=== PATIENT | female | born 1955 | race Caucasian/White ===

== ENCOUNTER → 2016-09-19 | Outpatient (CLI) | payer BC | LOC: BMCIMAGING 08:11 | DX: Z12.31 Encounter for screening mammogram for malignant neoplasm of breast (principal) | CPT/HCPCS: G0202 ==

== ENCOUNTER → 2017-04-19 | Outpatient (CLI) | payer BC | LOC: BMCIMAGING 15:17 | PROVIDERS: ATTEND Internal Medicine Rheumatology | DX: Z13.820 Encounter for screening for osteoporosis (principal) ==

== ENCOUNTER → 2017-10-18 | Outpatient (CLI) | payer BC | LOC: BMCIMAGING 14:09 | PROVIDERS: ATTEND Nurse Practitioner Adult Health | DX: Z12.31 Encounter for screening mammogram for malignant neoplasm of breast (principal) ==

== ENCOUNTER → 2018-10-21 | Outpatient (CLI) | payer BC | LOC: FIMAGING 09:33 | DX: Z12.31 Encounter for screening mammogram for malignant neoplasm of breast (principal) ==